=== PATIENT | female | born 1965 | race Hispanic/Latino ===

== ENCOUNTER 2017-04-08 06:21 | Emergency (ER) | payer OTHER ==
[~2017-04-08] VITALS: Ht 160 cm; Wt 78.9 kg
[2017-04-08 06:27] VITALS: BP 150/90
--- NOTE | 2017-04-08 06:35 | ED UPPER/LOWER EXTREMITY COMPL ---
History of Present Illness General Chief Complaint: Laceration Procedure Stated Complaint: LAC TO FINGER Source: patient Exam Limitations: no limitations Vital Signs & Intake/Output Vital Signs & Intake/Output Vital Signs Date Time Temp Pulse Resp B/P B/P Pulse O2 O2 Flow FiO2 Mean Ox Delivery Rate 04/08 0629 97 Room Air 04/08 0627 96.4 75 18 150/90 97 Room Air Allergies Coded Allergies: No Known Allergies (04/08/17) Triage Note: PT FROM HOME C/O LAC TO LEFT RING FINGER SLICING APPLES IN PTS KITCHEN ON A KNIFE AROUND 0545. PT STATES LAST TETANUS UNKNOWN. DR BELTRAN IN TRIAGE APPLYING GLUE TO PTS FINGER. PTS VSS. Triage Nurses Notes Reviewed? yes Onset: Abrupt Duration: hour(s):, better Timing: single episode today Severity: mild Pain/Injury Location: Left: 4th finger. Associated Symptoms: bleeding HPI: 51 yo woman presents with left 4th digit laceration after cutting it with a knife in her kitchen. She notes no other injury, "but it wouldn't stop bleeding." She is able to move her finger without problem. She is otherwise well. Past History Travel History Traveled to [place] past 21 day No Medical History Any Pertinent Medical History? see below for history Neurological: NONE Cardiovascular: hyperlipidemia Respiratory: NONE Gastrointestinal: NONE Hepatic: NONE Renal: NONE Musculoskeletal: NONE Psychiatric: anxiety Endocrine: NONE Surgical History Surgical History: none Psychosocial History What is your primary language Liberian Tobacco Use: Never used Family History Hx Contributory? No Review of Systems Review of Systems Constitutional: Reports: no symptoms. EENTM: Reports: no symptoms. Respiratory: Reports: no symptoms. Cardiovascular: Reports: no symptoms. Gastrointestinal/Abdominal: Reports: no symptoms. Genitourinary: Reports: no symptoms. Musculoskeletal: Reports: no symptoms. Skin: Reports: no symptoms. Neurological/Psychological: Reports: no symptoms. Hematologic/Endocrine: Reports: no symptoms. Immunological: Reports: no symptoms. All Other Systems: Reviewed and Negative Physical Exam Physical Exam General Appearance: well developed/nourished, mild distress Head: atraumatic Ears, Nose, Throat: normal ENT inspection Neck: normal inspection Hand Left: 4th finger, 1 cm superficial laceration on distal finger pad. well approximated, clean, no sign of infection. Progress Differential Diagnosis: laceration vs other. Plan of Care: Current Medications Sig/Zain Start time Last Medication Dose Stop Time Status Admin Tetanus/Diphtheria 0.5 ML ONCE ONE 04/08 644 UNVr Toxoids Adsorbed 04/08 645 (Decavac) Departure Departure Disposition: HOME OR SELF CARE Condition: Stable Clinical Impression Primary Impression: Laceration Departure Forms: Customer Survey General Discharge Information Procedures Laceration/Wound Repair Laceration/Wound Repair: Wound Location: left 4th digit Wound's Depth, Shape: linear Wound Length (cm): 1 Wound Repaired With: Steri-strips, Dermabond Date of Last Tetanus: 04/08/17 Progress: excellent result... superficial laceration
== END 2017-04-08 06:58 ==
LOC: ERH 06:21
DX: S61.215A Laceration without foreign body of left ring finger without damage to nail, initial encounter (principal); W26.0XXA Contact with knife, initial encounter; Y93.G1 Activity, food preparation and clean up; Y92.000 Kitchen of unspecified non-institutional (private) residence as the place of occurrence of the external cause
CPT/HCPCS: 90471; 90714